=== PATIENT | female | born 1970 | race Caucasian/White ===

== ENCOUNTER 2022-09-01 13:37 | Emergency (ER) | payer BC, SELFPAY ==
[2022-09-01 13:45] VITALS: BP 139/99; PULSE 112; RESP 18; TEMP 36.5; O2SAT 99
--- NOTE | 2022-09-01 13:45 | DI.RAD_ITS ---
Exam(s) XR PORTABLE CHEST AP EXAM: XR PORTABLE CHEST AP CLINICAL HISTORY: cough. TECHNIQUE: 2D digital imaging was performed. COMPARISON: No exams were available for comparison FINDINGS: Single AP portable view. Heart size is upper normal. The mediastinum is not widened. Lungs are clear. No infiltrates nor obvious pleural effusions. IMPRESSION: No acute pulmonary findings on this single AP portable view of the chest. DATA REPOSITORY: RADIATION DOSE DELIVERED:
--- NOTE | 2022-09-01 14:15 | DI.VRAD_ITS ---
PROCEDURE INFORMATION: Exam: XR Chest Exam date and time: 09/01/2022 1:50 PM Age: 52 years old Clinical indication: Cough TECHNIQUE: Imaging protocol: Radiologic exam of the chest. Views: 1 view. COMPARISON: No relevant prior studies available. FINDINGS: Lungs: Unremarkable. No consolidation. Pleural spaces: Unremarkable. No pleural effusion. No pneumothorax. Heart/Mediastinum: Unremarkable. No cardiomegaly. Bones/joints: Unremarkable. IMPRESSION: No acute findings. Dictated and Authenticated by: Manpreet Shearer MD. Ordering:TAMIKO Sanchez MD
--- NOTE | 2022-09-01 14:43 | ED.GENADUL_ITS ---
Discharge Plan Disposition Patient Disposition: Home Condition: Stable Discharge Details Clinical Impression: Bronchitis [facility] Provider: [facility] Provider: Laura Cadet Home Meds and New Rx's Prescriptions: New prednisone 20 mg tablet 40 mg PO ONCE Qty: 10 0RF Continued atorvastatin 20 mg tablet 20 mg PO DAILY omeprazole 20 mg Capsule,Delayed Release(Dr/Ec) 20 mg PO DAILY Discharge Instructions Instructions: Acute Bronchitis (ED) Additional Instructions: Use the albuterol as prescribed, 2 puffs every 4-6 hours Take the prednisone as prescribed Honey and lemon Follow-up with your doctor in 1 week if persistent symptoms Try to take the prednisone in the morning as it can cause some insomnia Discharge Data Discharge Date/Time-TO BE ENTERED AT DEPARTURE: 09/01/22 14:54 Medical Decision Making This 52-year-old female presents with report of cough, wheeze, shortness of breath starting proximal for the past 6 months, worse last evening, forgot her inhaler and visiting family Chest x-ray does not show acute abnormality per radiology interpretation my review COVID and flu negative DuoNeb and steroids applied for suspected bronchitis Will follow up with primary care physician when returns home Repeat pulse 90, oxygen saturation 99% No clinical evidence of pulmonary embolism symptoms persistent for 6 months Return precautions discussed and patient states that her symptoms HPI General Date/Time Provider Initiated Documentation: 09/01/22 13:51 . HPI Narrative: 52-year-old female presents for evaluation of cough, sore throat, headache, runny nose, for the past 6 months. Denies any fever or chills. States she had COVID 6 months ago and the symptoms have been intermittent since that time. Denies any pleuritic chest pain or chest pain. States nights are typically worse for her in terms of breathing. Denies any history of tobacco use. Related Data Home Medications Medication Instructions Recorded Confirmed atorvastatin 20 mg tablet 20 mg PO DAILY 09/01/22 09/01/22 omeprazole 20 mg capsule,delayed 20 mg PO DAILY 09/01/22 09/01/22 release prednisone 20 mg tablet 40 mg PO ONCE #10 tabs 09/01/22 Previous Rx's Medication Instructions Recorded prednisone 20 mg tablet 40 mg PO ONCE #10 tabs 09/01/22 Allergies Allergy/AdvReac Type Severity Reaction Status Date / Time No Known Allergies Allergy Unverified 09/01/22 13:48 General Stated Complaint: RespSymp ESTELA: 4 Review of Systems All systems reviewed & are unremarkable except as noted in HPI and below PFSH All Active Problems (Updated 09/01/22 @ 14:44 by RUFINA Dixon) Bronchitis (Acute) Social History Smoking/Tobacco Use Status: Never Smoking risk assessment performed?: Yes Alcohol Intake: current Alcohol Intake frequency: a few times a month Drug use: Never Substance use type: does not use Do you feel safe at home: Yes Do you feel safe in your relationship?: Yes Exam Const General: cooperative, comfortable and no acute distress Resp Effort & Inspection: normal respiratory effort Auscultation: clear to auscultation bilaterally Cardio Rate: regular rate Rhythm: regular rhythm Neuro General: patient alert and patient oriented x3 Course Vital Signs Vital signs: Vital Signs Temperature 36.5 C 09/01/22 13:45 Pulse 112 H 09/01/22 13:45 Respiratory Rate 18 09/01/22 13:45 Blood Pressure 139/99 H 09/01/22 13:45 Pulse Oximetry 99 09/01/22 13:45 Temperature 36.5 C 09/01/22 13:45 Temperature Source Temporal Artery Scan 09/01/22 13:45 Pulse 112 H 09/01/22 13:45 Respiratory Rate 18 09/01/22 13:45 Respiratory Effort Non-Labored 09/01/22 14:14 Respiratory Depth Normal 09/01/22 14:14 Blood Pressure 139/99 H 09/01/22 13:45 Blood Pressure Position Sitting 09/01/22 13:45 Pulse Oximetry 99 09/01/22 13:45 Oxygen Delivery Method Room Air 09/01/22 13:45 Oxygen Flow Rate 0 09/01/22 13:45 PAWSS Have you Been Recently Intoxicated or Drunk Within the Last 30 days?: No Have you Ever Experienced Previous Episodes of Alcohol Withdrawal?: No Have you ever Experienced Withdrawal Seizures?: No Have you ever Experienced Delirium Tremens(DT)s?: No Have you ever undergone Alcohol Rehabilitation Treatment (i.e, inpt ot outpatient treatment programs)?: No Have you ever Experienced Blackouts?: No Have you ever Combined Alcohol with other Downers within the last 90 days?: No Have you ever Combined Alcohol with any other Substance of Abuse during the last 90 days?: No Positive Blood Alcohol level on Presentation? [PCS.BAL]: No Evidence of Increased Autonomic Activity (i.e. HR>120, tremor, sweating, agitation, nausea)?: No Result: 0
[2022-09-01] MEDS: Albuterol HFA 8 GM 60 PUFF INH IH (14:54)
[2022-09-01] MEDS: Inhaler, Assist Device 1 EACH MC (14:54)
== END 2022-09-01 14:54 | disposition home or self-care (01) ==
PROVIDERS: Emergency Provider Physician Assistant
DX: J40 Bronchitis, not specified as acute or chronic (principal); Z86.16 Personal history of COVID-19; Z20.822 Contact with and (suspected) exposure to COVID-19
CPT/HCPCS: 99283; 71045